=== PATIENT | female | born 1975 | race African-American/Black ===

== ENCOUNTER 2016-11-11 13:38 | Emergency (ER) | payer OTHER ==
[2016-11-11 14:00] VITALS: RESP 20
[2016-11-11] MEDS ORDERED: ONDANSETRON 4 MG/2 ML VIAL IVP STA (14:41)
[2016-11-11] MEDS ORDERED: DICYCLOMINE 10 MG/ML 2 ML AMP IM STA (14:42)
[2016-11-11] MEDS ORDERED: LACTATED RINGERS 2,000 ML IV SCH (14:45)
--- NOTE | 2016-11-11 14:50 | ED ---
Nausea/Vomiting/Diarrhea HPI - General Chief complaint: Nausea/Vomiting/Diarrhea Stated complaint: NVD Time Seen by Provider: 11/11/16 14:27 Source: patient Mode of arrival: ambulatory Limitations: no limitations - History of Present Illness Initial comments: The patient is a 41-year-old female who presents to the ED with a chief complaint of nausea, vomiting, and diarrhea. Patient states that her symptoms began this morning after she had finished eating some fried pork last night. The patient states that her symptoms began at 0415 this morning. Patient states that she does not normally eat pork. Patient states that she's had multiple episodes of vomiting since her symptoms initially began. She notes that she's also had multiple episodes of diarrhea. Patient notes pain in the epigastric region when she feels the urge to vomit. Patient denies any dysuria or hematuria. Patient denies any sick contacts. Patient states that she's been able to tolerate small amounts of water. Otherwise, the patient has not been able to tolerate any food or drink. Patient notes that she also has a history of anemia. She states that she used to receive B12 injections as well as iron supplements but has not been receiving either of these due to the fact that she has been discharged from her primary care practitioner's office due to failing to show up for multiple appointments. Patient notes that she has not been eating healthy recently due to the fact that she lost her job and is currently on food stamps. Patient has a family history of diabetes. - Related Data Previous Rx's Medication Instructions Recorded Dicyclomine [Bentyl] 10 mg PO TID PRN #20 capsule 11/11/16 Famotidine [Pepcid] 20 mg PO BID #7 tablet 11/11/16 Ondansetron Odt [Zofran Odt] 4 mg PO Q8HR PRN #9 tab 11/11/16 Allergies Allergy/AdvReac Type Severity Reaction Status Date / Time acetaminophen [From Tylenol] AdvReac Vomiting Verified 11/11/16 14:46 red dye AdvReac Unknown Verified 11/11/16 14:46 Review of Systems ROS Statement: Those systems with pertinent positive or pertinent negative responses have been documented in the HPI. ROS Other: All systems not noted in ROS Statement are negative. Constitutional: Denies: fever, chills, weakness Eyes: Denies: vision change ENT: Denies: ear pain, throat pain Respiratory: Denies: cough, dyspnea, wheezes, stridor Cardiovascular: Denies: chest pain, palpitations, dyspnea on exertion Endocrine: Reports: fatigue Gastrointestinal: Reports: nausea, vomiting, diarrhea. Denies: abdominal pain, constipation Genitourinary: Denies: urgency, dysuria, frequency, hematuria Musculoskeletal: Denies: back pain Skin: Denies: rash Neurological: Denies: headache, weakness Psychiatric: Denies: anxiety, depression Past Medical History Past Medical History: Asthma Additional Past Medical History / Comment(s): ANEMIA states has mini seizures every day but does not take meds for condition History of Any Multi-Drug Resistant Organisms: None Reported Past Surgical History: Section, Cholecystectomy, Orthopedic Surgery Past Psychological History: No Psychological Hx Reported Smoking Status: Current every day smoker Past Alcohol Use History: None Reported Past Drug Use History: None Reported General Exam Limitations: no limitations General appearance: alert, in no apparent distress Head exam: Present: atraumatic, normocephalic Eye exam: Present: normal appearance, PERRL Pupils: Present: normal accommodation ENT exam: Present: normal exam, mucous membranes dry Neck exam: Present: normal inspection Respiratory exam: Present: normal lung sounds bilaterally. Absent: respiratory distress, wheezes, rales, rhonchi, stridor Cardiovascular Exam: Present: normal rhythm, tachycardia GI/Abdominal exam: Present: soft. Absent: distended, tenderness, guarding, rebound Extremities exam: Present: normal inspection, full ROM Back exam: Present: normal inspection, full ROM Neurological exam: Present: alert, oriented X3 Psychiatric exam: Present: normal affect, normal mood Skin exam: Present: warm, dry, intact Course Vital Signs 11/11/16 13:57 Temperature 99.2 F Pulse Rate 93 Respiratory 20 Rate Blood Pressure 135/90 O2 Sat by Pulse 98 Oximetry Medical Decision Making - Medical Decision Making Patient is a 41-year-old female who presents to ED with a chief complaint of nausea, vomiting, diarrhea. Patient states that her symptoms began earlier this morning. Patient states that they began after she consumed fried pork last night. Patient states abdominal pain, particularly in the epigastric region just before she has the urge to vomit. Patient has no tenderness to palpation on abdominal examination. No distention. Patient notes that she's vomited several times and had several bouts of diarrhea. Denies any recent antibiotic use. Patient denies any sick contacts. Bolus patient with 2L of lactated Ringer's. Check CBC, CMP, Magnesium. Check UA and urine as well. Provide patient with Zofran and Bentyl for symptomatically control. 4:58 PM Patient resting comfortably at this point in time. She states that her nausea and vomiting have resolved. IVF infusing. Will reassess patient after IVF have infused. 6:30 PM Patient has passed a PO challenge. She states that her her abdominal pain and cramping have improved. Patient has provided a urine sample. No evidence of UTI. Urine test noted to be negative. Patient will be discharged at this point in time with prescriptions for Zofran and Bentyl to use at home when necessary. I have counseled the patient regarding on how to use these medications. I have encouraged her to follow-up with her PCP within the next 3- 5 days to ensure that her symptoms are resolved. I have counseled her to return to the ED should her symptoms worsen while at home. I have answered all of her questions to her satisfaction. I have also counseled the patient that her hemoglobin is 11.6 and that she does not require a transfusion today. Nonetheless, she should follow up with her PCP regarding her history of anemia. The patient has requested Pepcid prior to discharge. I am happy to write her a prescription for this medication. - Lab Data Result diagrams: 11/11/16 15:40 11/11/16 15:40 Lab Results 11/11/16 11/11/16 11/11/16 Range/Units 15:40 15:40 17:53 WBC 8.2 (3.8-10.6) k/uL RBC 4.43 (3.80-5.40) m/uL Hgb 11.6 (11.4-16.0) gm/dL Hct 37.3 (34.0-46.0) % MCV 84.1 (80.0-100.0) fL MCH 26.2 (25.0-35.0) pg MCHC 31.1 (31.0-37.0) g/dL RDW 15.1 (11.5-15.5) % Plt Count 370 (150-450) k/uL Neutrophils % 73 % Lymphocytes % 22 % Monocytes % 2 % Eosinophils % 2 % Basophils % 0 % Neutrophils # 6.0 (1.3-7.7) k/uL Lymphocytes # 1.8 (1.0-4.8) k/uL Monocytes # 0.2 (0-1.0) k/uL Eosinophils # 0.1 (0-0.7) k/uL Basophils # 0.0 (0-0.2) k/uL Hypochromasia Slight Sodium 138 (137-145) mmol/L Potassium 4.5 (3.5-5.1) mmol/L Chloride 105 (98-107) mmol/L Carbon Dioxide 24 (22-30) mmol/L Anion Gap 9 mmol/L BUN 12 (7-17) mg/dL Creatinine 0.60 (0.52-1.04) mg/dL Est GFR (MDRD) Af Amer >60 (>60 ml/min/1.73 sqM) Est GFR (MDRD) Non-Af >60 (>60 ml/min/1.73 sqM) Glucose 114 H (74-99) mg/dL Calcium 9.4 (8.4-10.2) mg/dL Magnesium 1.8 (1.6-2.3) mg/dL Total Bilirubin 0.8 (0.2-1.3) mg/dL AST 21 (14-36) U/L ALT 29 (9-52) U/L Alkaline Phosphatase 83 (38-126) U/L Total Protein 7.5 (6.3-8.2) g/dL Albumin 3.9 (3.5-5.0) g/dL Urine Color Urine Appearance (Clear) Urine pH (5.0-8.0) Ur Specific [place] (1.001-1.035) Urine Protein (Negative) Urine Glucose (UA) (Negative) Urine Ketones (Negative) Urine Blood (Negative) Urine Nitrite (Negative) Urine Bilirubin (Negative) Urine Urobilinogen (<2.0) mg/dL Ur Leukocyte Esterase (Negative) Urine RBC (0-5) /hpf Urine WBC (0-5) /hpf Ur Squamous Epith Cells (0-4) /hpf Urine Bacteria (None) /hpf Urine Mucus (None) /hpf Urine HCG, Qual Not Detected (Not Detectd) 11/11/16 Range/Units 17:53 WBC (3.8-10.6) k/uL RBC (3.80-5.40) m/uL Hgb (11.4-16.0) gm/dL Hct (34.0-46.0) % MCV (80.0-100.0) fL MCH (25.0-35.0) pg MCHC (31.0-37.0) g/dL RDW (11.5-15.5) % Plt Count (150-450) k/uL Neutrophils % % Lymphocytes % % Monocytes % % Eosinophils % % Basophils % % Neutrophils # (1.3-7.7) k/uL Lymphocytes # (1.0-4.8) k/uL Monocytes # (0-1.0) k/uL Eosinophils # (0-0.7) k/uL Basophils # (0-0.2) k/uL Hypochromasia Sodium (137-145) mmol/L Potassium (3.5-5.1) mmol/L Chloride (98-107) mmol/L Carbon Dioxide (22-30) mmol/L Anion Gap mmol/L BUN (7-17) mg/dL Creatinine (0.52-1.04) mg/dL Est GFR (MDRD) Af Amer (>60 ml/min/1.73 sqM) Est GFR (MDRD) Non-Af (>60 ml/min/1.73 sqM) Glucose (74-99) mg/dL Calcium (8.4-10.2) mg/dL Magnesium (1.6-2.3) mg/dL Total Bilirubin (0.2-1.3) mg/dL AST (14-36) U/L ALT (9-52) U/L Alkaline Phosphatase (38-126) U/L Total Protein (6.3-8.2) g/dL Albumin (3.5-5.0) g/dL Urine Color Yellow Urine Appearance Clear (Clear) Urine pH 7.0 (5.0-8.0) Ur Specific [place] 1.016 (1.001-1.035) Urine Protein Negative (Negative) Urine Glucose (UA) Negative (Negative) Urine Ketones Negative (Negative) Urine Blood Small H (Negative) Urine Nitrite Negative (Negative) Urine Bilirubin Negative (Negative) Urine Urobilinogen <2.0 (<2.0) mg/dL Ur Leukocyte Esterase Negative (Negative) Urine RBC <1 (0-5) /hpf Urine WBC 1 (0-5) /hpf Ur Squamous Epith Cells 1 (0-4) /hpf Urine Bacteria Rare H (None) /hpf Urine Mucus Rare H (None) /hpf Urine HCG, Qual (Not Detectd) Disposition Clinical Impression: Nausea & vomiting, Diarrhea Disposition: HOME SELF-CARE Condition: Good Instructions: Acute Nausea and Vomiting (ED), Acute Diarrhea (ED) Additional Instructions: Please return to the ED should you have worsening symptoms while at home, particularly if associated with fever, chills or worsening abdominal pain. Prescriptions: Dicyclomine [Bentyl] 10 mg PO TID PRN #20 capsule PRN Reason: pain Famotidine [Pepcid] 20 mg PO BID #7 tablet Ondansetron Odt [Zofran Odt] 4 mg PO Q8HR PRN #9 tab PRN Reason: Nausea Referrals: Lencho Dillard MD [STAFF PHYSICIAN] - 11/18/16 (Dr. Dillard is a Primary Care Physician. You can call their office to schedule a follow-up appointment within the next 3-5 days to ensure that your symptoms resolve.) Time of Disposition: 18:33
[2016-11-11] MEDS ORDERED: METOCLOPRAMIDE 5 MG/ML 2 ML VIAL IVP STA (15:36)
[2016-11-11] MEDS ORDERED: diphenhydrAMINE 50 MG/ML 1 ML VIAL IVP STA (15:36)
[2016-11-11 16:10] LABS: Basophils % (A) 0 %; CH 26.1; CHCM 31.1; Eosinophils # (A) 0.1 k/uL (0-0.7); Eosinophils % (A) 2 %; HCT 37.3 % (34.0-46.0); HDW 2.78; HGB 11.6 gm/dL (11.4-16.0); Hypochromasia Slight; Luc # (Auto) 0.08; Luc % (Auto) 1; Lymphocytes # (A) 1.8 k/uL (1.0-4.8); Lymphocytes % (A) 22 %; MCH 26.2 pg (25.0-35.0); MCHC 31.1 g/dL (31.0-37.0); MCV 84.1 fL (80.0-100.0); Mean Platelet Volume 7.3; Monocytes # (A) 0.2 k/uL (0-1.0); Monocytes % (A) 2 %; Neutrophils % (A) 73 %; RBC 4.43 m/uL (3.80-5.40); RDW 15.1 % (11.5-15.5); WBC 8.2 k/uL (3.8-10.6); WBC (Perox) 8.93
[2016-11-11 16:18] LABS: ALT 29 U/L (9-52); AST 21 U/L (14-36); Alkaline Phosphatase 83 U/L (38-126); Anion Gap 9 mmol/L; Blood Urea Nitrogen 12 mg/dL (7-17); Calcium 9.4 mg/dL (8.4-10.2); Carbon Dioxide 24 mmol/L (22-30); Chloride 105 mmol/L (98-107); Glucose 114 mg/dL (74-99); Magnesium 1.8 mg/dL (1.6-2.3); Non-African American GFR(MDRD) >60 (>60 ml/min/1.73 sqM); Potassium 4.5 mmol/L (3.5-5.1); Sodium 138 mmol/L (137-145); Total Bilirubin 0.8 mg/dL (0.2-1.3); Total Protein 7.5 g/dL (6.3-8.2)
[2016-11-11 18:10] LABS: Appearance,Urine Clear (Clear); Bacteria,Urine Rare /hpf; Bilirubin,Urine Negative (Negative); Glucose,Urine (UA) Negative (Negative); Ketones,Urine Negative (Negative); Leukocyte Esterase,Urine Negative (Negative); Mucus,Urine Rare /hpf; Nitrite,Urine Negative (Negative); Particle Count 2151; Protein,Urine Negative (Negative); RBC,Urine <1 /hpf (0-5); Specific Gravity,Urine 1.016 (1.001-1.035); Squamous Epithelial Cell,Urine 1 /hpf (0-4); UA Billing (MACRO vs. MICRO) MICRO; Urobilinogen,Urine <2.0 mg/dL (<2.0); WBC,Urine 1 /hpf (0-5)
[2016-11-11 18:47] VITALS: BP 134/87; PULSE 90; TEMP 98.4
== END 2016-11-11 18:47 | disposition home or self-care (01) ==
LOC: EC 13:38
DX: R11.2 Nausea with vomiting, unspecified (principal); R19.7 Diarrhea, unspecified; R10.13 Epigastric pain; F17.200 Nicotine dependence, unspecified, uncomplicated; Z88.6 Allergy status to analgesic agent; Z91.048 Other nonmedicinal substance allergy status; Z90.49 Acquired absence of other specified parts of digestive tract
CPT/HCPCS: 36415; 80053; 83735; 85025; 81001; 81025; 99283; 96374; 96361 ×2; 96372; J0500; J2405

== ENCOUNTER 2021-12-08 15:46 | Emergency (ER) | payer OTHER ==
[2021-12-08 16:45] VITALS: RESP 18; TEMP 98.5
--- NOTE | 2021-12-08 17:15 | XR ---
EXAMINATION TYPE: XR KUB DATE OF EXAM: 12/08/2021 COMPARISON: NONE HISTORY: Abdominal pain TECHNIQUE: 2 views upright FINDINGS: There is no sign of intestinal obstruction or pneumoperitoneum. Fecal pattern is normal. No evidence of a mass. There are no calcifications over the kidneys. Lung bases appear clear. IMPRESSION: Nonacute abdomen.
[2021-12-08] MEDS ORDERED: SODIUM CHLORIDE 0.9% 1,000 ML IV STA (18:13)
[2021-12-08] MEDS ORDERED: polyethylene glycoL 3350 17 GM POWD.PACK PO STA (18:13)
--- NOTE | 2021-12-08 18:15 | ED ---
General Adult HPI - General Chief complaint: Abdominal Pain Stated complaint: Constipation Time Seen by Provider: 12/08/21 18:04 Source: patient Mode of arrival: ambulatory Limitations: no limitations - History of Present Illness Initial comments: Dictation was produced using [email or web address] dictation software. please excuse any grammatical, word or spelling errors. Chief Complaint: 46-year-old female presents emergency department for constipation History of Present Illness: Patient is a 38-year-old female presents to the emergency department for constipation. Patient reports that she has been passing hard and small pebble size stools for the last 2-3 days. Patient states she consumes marijuana on a regular basis. She describes her symptoms as feeling dehydrated internally. Denies any nausea. No abdominal pain. Patient has bouts of constipation in the past. She does have a history of anemia. Patient denies any nausea or lightheadedness. The ROS documented in this emergency department record has been reviewed and confirmed by me. Those systems with pertinent positive or negative responses have been documented in the HPI. All other systems are other negative and/or noncontributory. PHYSICAL EXAM: General Impression: Alert and oriented x3, not in acute distress HEENT: Normocephalic atraumatic, extra-ocular movements intact, pupils equal and reactive to light bilaterally, mucous membranes moist. Cardiovascular: Heart regular rate and rhythm Chest: Able to complete full sentences, no retractions, no tachypnea Abdomen: abdomen soft, non-tender, non-distended, no organomegaly Musculoskeletal: Pulses present and equal in all extremities, no peripheral edema Motor: no focal deficits noted Neurological: CN II-XII grossly intact, no focal motor or sensory deficits noted Skin: Intact with no visualized rashes Psych: Normal affect and mood ED course: 38-year-old female presents to the emergency department for clinical constipation. Abdominal x-ray was ordered by triage nurse per [facility] protocol. X- rays unremarkable. Patient's well-appearing she has soft abdomen. No high-risk features. Vital signs are within acceptable limits. Patient given IV fluids and dose of MiraLAX. Patient discharged and advised to follow-up with primary care doctor. - Related Data Previous Rx's Medication Instructions Recorded Ciprofloxacin HCl [Cipro] 500 mg PO Q12HR #10 tablet 05/15/17 Allergies Allergy/AdvReac Type Severity Reaction Status Date / Time acetaminophen [From Tylenol] AdvReac Vomiting Verified 12/08/21 16:45 red dye AdvReac Unknown Verified 12/08/21 16:45 Review of Systems ROS Statement: Those systems with pertinent positive or pertinent negative responses have been documented in the HPI. ROS Other: All systems not noted in ROS Statement are negative. Past Medical History Past Medical History: Asthma, Hyperlipidemia, Hypertension Additional Past Medical History / Comment(s): ANEMIA states has mini seizures every day but does not take meds for condition History of Any Multi-Drug Resistant Organisms: None Reported Past Surgical History: Section, Cholecystectomy, Orthopedic Surgery Past Psychological History: No Psychological Hx Reported Smoking Status: Never smoker Past Alcohol Use History: None Reported Past Drug Use History: Marijuana General Exam Limitations: no limitations Course Vital Signs 12/08/21 16:40 Temperature 98.5 F Pulse Rate 79 Respiratory 18 Rate Blood Pressure 176/87 O2 Sat by Pulse 97 Oximetry Disposition Clinical Impression: Dehydration, Constipation Disposition: HOME SELF-CARE Condition: Good Instructions (If sedation given, give patient instructions): Dehydration (ED) Is patient prescribed a controlled substance at d/c from ED?: No Referrals: Nonstaff,Physician [Primary Care Provider] - 1-2 days
[2021-12-08 20:06] VITALS: BP 150/74; PULSE 70
== END 2021-12-08 20:05 | disposition home or self-care (01) ==
LOC: EC 15:46
DX: K59.00 Constipation, unspecified (principal); E86.0 Dehydration; I10 Essential (primary) hypertension; E78.5 Hyperlipidemia, unspecified; J45.909 Unspecified asthma, uncomplicated; F12.90 Cannabis use, unspecified, uncomplicated; Z88.6 Allergy status to analgesic agent; Z90.49 Acquired absence of other specified parts of digestive tract
CPT/HCPCS: 74018; 96360; 99283

== ENCOUNTER 2021-12-21 23:20 | Emergency (ER) | payer OTHER ==
[2021-12-22 00:49] VITALS: BP 101/45; PULSE 80; RESP 19; TEMP 98
--- NOTE | 2021-12-22 02:59 | ED ---
Recheck HPI - General Chief Complaint: Recheck/Abnormal Lab/Rx Stated Complaint: Dehydration Time Seen by Provider: 12/22/21 01:50 Source: patient, RN notes reviewed Mode of arrival: wheelchair - History of Present Illness Initial Comments: This is a pleasant 46-year-old female who presents to the parents department admittedly just looking for a place to sleep. Apparently she and her partner have been evicted from their residence. They currently have no place to stay. They admit to sleeping in the waiting room of the emergency department for the last 2 days. Patient does state that she has chronic peripheral edema but has no fever or chills. No chest pain or shortness of breath. No headache, no fever or chills, no changes in vision or hearing, no sore throat or difficulty with speech, no neck pain, no chest pain or shortness of breath, no abdominal pain, no nausea or vomiting, no changes in urination or bowel movements, no numbness or tingling, no extremity pain, no skin rashes or lesions. - Related Data Previous Rx's Medication Instructions Recorded Ciprofloxacin HCl [Cipro] 500 mg PO Q12HR #10 tablet 05/15/17 Allergies Allergy/AdvReac Type Severity Reaction Status Date / Time acetaminophen [From Tylenol] AdvReac Vomiting Verified 12/22/21 00:50 red dye AdvReac Unknown Verified 12/22/21 00:50 Review of Systems ROS Statement: Those systems with pertinent positive or pertinent negative responses have been documented in the HPI. ROS Other: All systems not noted in ROS Statement are negative. Past Medical History Past Medical History: Asthma, Hyperlipidemia, Hypertension Additional Past Medical History / Comment(s): ANEMIA states has mini seizures every day but does not take meds for condition History of Any Multi-Drug Resistant Organisms: None Reported Past Surgical History: Section, Cholecystectomy, Orthopedic Surgery Past Psychological History: No Psychological Hx Reported Smoking Status: Never smoker Past Alcohol Use History: None Reported Past Drug Use History: Marijuana General Exam General appearance: alert, in no apparent distress Head exam: Present: atraumatic, normocephalic, normal inspection Eye exam: Present: normal appearance, PERRL, EOMI. Absent: scleral icterus, conjunctival injection, periorbital swelling ENT exam: Present: normal exam, mucous membranes moist Neck exam: Present: normal inspection. Absent: tenderness, meningismus, lymphadenopathy Respiratory exam: Present: normal lung sounds bilaterally. Absent: respiratory distress, wheezes, rales, rhonchi, stridor Cardiovascular Exam: Present: regular rate, normal rhythm, normal heart sounds. Absent: systolic murmur, diastolic murmur, rubs, gallop, clicks GI/Abdominal exam: Present: soft, normal bowel sounds. Absent: distended, tenderness, guarding, rebound, rigid Extremities exam: Present: normal inspection, full ROM, normal capillary refill. Absent: tenderness, pedal edema, joint swelling, calf tenderness Back exam: Present: normal inspection Neurological exam: Present: alert, oriented X3, CN II-XII intact Psychiatric exam: Present: normal affect, normal mood Skin exam: Present: warm, dry, intact, normal color. Absent: rash Course Vital Signs 12/22/21 00:42 Temperature 98 F Pulse Rate 80 Respiratory 19 Rate Blood Pressure 101/45 O2 Sat by Pulse 98 Oximetry Medical Decision Making - Medical Decision Making Homeless patient presents admittedly for a place to stay and fdc for the night. No acute findings. Patient was told to return to the ER for any signs or symptoms worsen. Told to return immediately if any other problems arise. All questions answered. Treatment plan discussed. Patient in agreement Every effort has been made to ensure accuracy of this dictation. However, due to the limitations of electronic medical records and dictation devices, errors in charting still occur. Lab Associate, Dr. George Disposition Clinical Impression: Homelessness, Obesity, Chronic edema Disposition: HOME SELF-CARE Condition: Good Instructions (If sedation given, give patient instructions): Leg Edema (ED) Additional Instructions: No headache, no fever or chills, no changes in vision or hearing, no sore throat or difficulty with speech, no neck pain, no chest pain or shortness of breath, no abdominal pain, no nausea or vomiting, no changes in urination or bowel movements, no numbness or tingling, no extremity pain, no skin rashes or lesions. Provide options for homeless fdc Is patient prescribed a controlled substance at d/c from ED?: No Referrals: Nonstaff,Physician [Primary Care Provider] - 1-2 days Time of Disposition: 02:57
== END 2021-12-22 04:55 | disposition home or self-care (01) ==
LOC: EC 23:20
DX: E66.9 Obesity, unspecified (principal); R60.0 Localized edema; I10 Essential (primary) hypertension; J45.909 Unspecified asthma, uncomplicated; Z59.00 Homelessness unspecified; Z88.6 Allergy status to analgesic agent; Z88.8 Allergy status to other drugs, medicaments and biological substances; Z68.44 Body mass index [BMI] 60.0-69.9, adult
CPT/HCPCS: 99283

== ENCOUNTER 2024-07-21 14:44 | Emergency (ER) | payer OTHER ==
[2024-07-21 15:09] VITALS: RESP 20
--- NOTE | 2024-07-21 15:41 | XR ---
EXAMINATION TYPE: XR pelvis AP view DATE OF EXAM: 07/21/2024 3:34 PM COMPARISON: None. CLINICAL INDICATION: Female, 48 years old with history of Possible tampon stuck, TECHNIQUE: A single AP view of the pelvis is obtained. FINDINGS: There is no acute fracture/dislocation evident in the pelvis. The hip and sacroiliac join ts appear symmetric and unremarkable. Scattered tiny bilateral pelvic phleboliths. No definitive rect angular shaped air density to suggest retained tampon but this should be correlated with direct visua lization. IMPRESSION: As above. [facility], , 07/21/2024 3:39 PM
--- NOTE | 2024-07-21 15:49 | XR ---
Chest, 2 view. HISTORY: Difficulty breathing COMPARISON: 09/15/2022 TECHNIQUE: PA and lateral views the chest are obtained. FINDINGS: The lungs are clear and there is no consolidative or interstitial opacity. There is no pleural effusion or pneumothorax. The heart, pulmonary vasculature, mediastinum and melo appear normal. The osseous structures are intact. IMPRESSION: No significant abnormality seen. No acute cardiopulmonary disease. [facility], , 07/21/2024 3:47 PM
--- NOTE | 2024-07-21 16:46 | ED ---
Female Urogenital HPI - General Source: patient, RN notes reviewed Mode of arrival: ambulatory Limitations: no limitations - History of Present Illness MD Complaint: vaginal discharge Onset/Timin -: month(s) Quality: burning Associated Symptoms: vaginal discharge <Yong Lewis - Last Filed: 07/21/24 16:43> <Gela Vallejo - Last Filed: 08/03/24 10:59> - General Chief complaint: Urogenital Stated complaint: Questionable tampon stuck, asthma Time Seen by Provider: 07/21/24 14:59 - History of Present Illness Initial comments: This is a 48-year-old female presenting with possible stuck tampon x 1 month. Patient endorses recent vaginal burning and discharge of tissue. Patient also mentions asthma exacerbation with wet cough x 1 month, requesting chest x-ray an d steroid shot. Endorses use of albuterol inhaler with minimal relief. (Yong Lewis) 48-year-old who presents emergency department requesting evaluation for possible tampon. Patient frequently had normal vaginal burning and discharge. Patient was on her menstrual cycle approximately 1 month ago and states she cant account for 1 tampon. Patient denies being sexually active. She is also admitting to a cough. Does admit to history of asthma. Denies fevers or chills. No sick contacts. She has been using her albuterol inhaler with minimal relief in her symptoms. She is requesting a steroid shot as these have helped her in the past. (Gela Vallejo) - Related Data Previous Rx's Medication Instructions Recorded Ciprofloxacin HCl [Cipro] 500 mg PO Q12HR #10 tablet 05/15/17 Albuterol Inhaler [Ventolin Hfa 2 puff INHALATION QID #8 gm 09/15/22 Inhaler] predniSONE 50 mg PO DAILY #5 tab 09/15/22 Fluconazole [Diflucan] 150 mg PO ONCE #2 tab 07/21/24 Allergies Allergy/AdvReac Type Severity Reaction Status Date / Time acetaminophen [From Tylenol] AdvReac Vomiting Verified 07/21/24 15:04 red dye AdvReac Unknown Verified 07/21/24 15:04 Review of Systems ROS Other: All systems not noted in ROS Statement are negative. <Yong Lewis - Last Filed: 07/21/24 16:43> ROS Other: All systems not noted in ROS Statement are negative. <Gela Vallejo - Last Filed: 08/03/24 10:59> ROS Statement: Those systems with pertinent positive or pertinent negative responses have been documented in the HPI. Past Medical History Past Medical History: Asthma, Hyperlipidemia, Hypertension Additional Past Medical History / Comment(s): ANEMIA states has mini seizures e very day but does not take meds for condition History of Any Multi-Drug Resistant Organisms: None Reported Past Surgical History: Section, Cholecystectomy, Orthopedic Surgery Past Psychological History: No Psychological Hx Reported Smoking Status: Never smoker Past Alcohol Use History: None Reported Past Drug Use History: Marijuana <Yong Lewis - Last Filed: 07/21/24 16:43> General Exam Limitations: no limitations <Yong Lewis - Last Filed: 07/21/24 16:43> General appearance: alert, in no apparent distress Head exam: Present: atraumatic, normocephalic, normal inspection Eye exam: Present: normal appearance, PERRL, EOMI. Absent: scleral icterus, conjunctival injection, periorbital swelling ENT exam: Present: normal exam, mucous membranes moist Neck exam: Present: normal inspection. Absent: tenderness, meningismus, lymphadenopathy Respiratory exam: Present: normal lung sounds bilaterally. Absent: respiratory distress, wheezes, rales, rhonchi, stridor Cardiovascular Exam: Present: regular rate, normal rhythm, normal heart sounds. Absent: systolic murmur, diastolic murmur, rubs, gallop, clicks GI/Abdominal exam: Present: soft, normal bowel sounds. Absent: distended, tenderness, guarding, rebound, rigid External exam: Present: normal external exam Speculum exam: Present: normal speculum exam. Absent: foreign body Extremities exam: Present: normal inspection, full ROM, normal capillary refill. Absent: tenderness, pedal edema, joint swelling, calf tenderness Back exam: Present: normal inspection Neurological exam: Present: alert, oriented X3, CN II-XII intact Psychiatric exam: Present: normal affect, normal mood Skin exam: Present: warm, dry, intact, normal color. Absent: rash <Gela Vallejo - Last Filed: 08/03/24 10:59> - General Exam Comments Initial Comments: Visual Physical Exam Vital signs reviewed General: Well-appearing, nontoxic, no acute distress. Head: Normocephalic, atraumatic Eyes: PERRLA, EOMI ENT: Airway patent Chest: Nonlabored breathing Skin: No visual rash, normal skin tone Neuro: Alert and oriented 3 Musculoskeletal: No gross abnormalities (Yong Lewis) Course Vital Signs 07/21/24 07/21/24 15:05 18:29 Temperature 98.2 F 98.0 F Pulse Rate 88 80 Respiratory 20 20 Rate Blood Pressure 128/73 130/68 O2 Sat by Pulse 97 99 Oximetry Medical Decision Making <Yong Lewis - Last Filed: 07/21/24 16:43> <Gela Vallejo - Last Filed: 08/03/24 10:59> - Medical Decision Making I completed the quick note portion of this chart signed HUY Cool (Yong Lewis) Was pt. sent in by a medical professional or institution (ANIYA Swann, BIOANALYST, urgent care, hospital, or correction...) When possible be specific @ -No Did you speak to anyone other than the patient for history (EMS, parent, family, police, friend...)? What history was obtained from this source @ -No Did you review nursing and triage notes (agree or disagree)? Why? @ -I reviewed and agree with nursing and triage notes Were old charts reviewed (outside hosp., previous admission, EMS record, old EKG, old radiological studies, urgent care reports/EKG's, correction records)? Report findings @ -No old charts were reviewed Differential Diagnosis (chest pain, altered mental status, abdominal pain women, abdominal pain men, vaginal bleeding, weakness, fever, dyspnea, syncope, headache, dizziness, GI bleed, back pain, seizure, CVA, palpatations, mental health, musculoskeletal)? @ -retained foreign body, sti, bv, yeast infection, asthma exacerbation EKG interpreted by me (3pts min.). @ -not done X-rays interpreted by me (1pt min.). @ -yes, no acute findings CT interpreted by me (1pt min.). @ -None done U/S interpreted by me (1pt. min.). @ -None done What testing was considered but not performed or refused? (CT, X-rays, U/S, labs)? Why? @ -None What meds were considered but not given or refused? Why? @ -None Did you discuss the management of the patient with other professionals (professionals i.e. , PA, BIOANALYST, lab, RT, psych nurse, forensic social worker, camp director, teacher, chief digital media officer, telephonic case manager)? Give summary @ -No Was smoking cessation discussed for >3mins.? @ -No Was critical care preformed (if so, how long)? @ -No Were there social determinants of health that impacted care today? How? (Homelessness, low income, unemployed, alcoholism, drug addiction, transportation, low edu. Level, literacy, decrease access to med. care, [place] [facility], rehab)? @ -No Was there de-escalation of care discussed even if they declined (Discuss DNR or withdrawal of care, Hospice)? DNR status @ -No What co-morbidities impacted this encounter? (DM, HTN, Smoking, COPD, CAD, Cancer, CVA, ARF, Chemo, Hep., AIDS, mental health diagnosis, sleep apnea, morbid obesity)? @ -asthma Was patient admitted / discharged? Hospital course, mention meds given and route, prescriptions, significant lab abnormalities, going to OR and other pertinent info. @ -XR negative. Pelvic exam demonstrates no retained foreign body. solumedrol shot given. Patient will be discharged to follow up with pcp in 2-4 days. She is given a prescription for Diflucan for suspected yeast Undiagnosed new problem with uncertain prognosis? @ -No Drug Therapy requiring intensive monitoring for toxicity (Heparin, Nitro, Insulin, Cardizem)? @ -No Were any procedures done? @ -No Diagnosis/symptom? @ -acute pelvic discharge -suspected Kallie infection, eval for foreign body, acute cough Acute, or Chronic, or Acute on Chronic? @ -acute Uncomplicated (without systemic symptoms) or Complicated (systemic symptoms)? @ -complicated Side effects of treatment? @ -No Exacerbation, Progression, or Severe Exacerbation? @ -No Poses a threat to life or bodily function? How? (Chest pain, [place], [place], pneumonia, PE, COPD, DKA, ARF, appy, cholecystitis, CVA, Diverticulitis, Homicidal, Suicidal, threat to sNo n... and all critical care pts) @ -No (Gela Vallejo) - Lab Data Lab Results 07/21/24 07/21/24 Range/Units 17:08 17:08 Urine Color Yellow Urine Appearance Clear (Clear) Urine pH 5.5 (5.0-8.0) Ur Specific [place] 1.027 (1.001-1.035) Urine Protein Trace H (Negative) Urine Glucose (UA) Negative (Negative) Urine Ketones Negative (Negative) Urine Blood Negative (Negative) Urine Nitrite Negative (Negative) Urine Bilirubin Negative (Negative) Urine Urobilinogen <2.0 (<2.0) mg/dL Ur Leukocyte Esterase Negative (Negative) Urine HCG, Qual Not Detected (Not Detectd) Disposition <Yong Lewis - Last Filed: 07/21/24 16:43> Is patient prescribed a controlled substance at d/c from ED?: No Time of Disposition: 18:11 <Gela Vallejo - Last Filed: 08/03/24 10:59> Clinical Impression: Vaginal discharge, Cough, Asthma Disposition: HOME SELF-CARE Condition: Stable Instructions (If sedation given, give patient instructions): Yeast Infection (ED) Additional Instructions: Please take the medications as they are directed. Follow up with your doctor in 1-2 days and return for any new or worsening symptoms Prescriptions: Fluconazole [Diflucan] 150 mg PO ONCE #2 tab Referrals: Remington Macedo MD [Primary Care Provider] - 1-2 days
[2024-07-21 17:23] LABS: Appearance,Urine Clear (Clear); Bilirubin,Urine Negative (Negative); Blood,Urine Negative (Negative); Color,Urine Yellow; Glucose,Urine (UA) Negative (Negative); Ketones,Urine Negative (Negative); Leukocyte Esterase,Urine Negative (Negative); Nitrite,Urine Negative (Negative); PH, Urine 5.5 (5.0-8.0); Protein,Urine Trace (Negative); Specific Gravity,Urine 1.027 (1.001-1.035); Urobilinogen,Urine <2.0 mg/dL (<2.0)
[2024-07-21] MEDS: methylPREDNISolone SOD SUCCI 125 MG/2 ML VIAL IM STA (18:08)
[2024-07-21 18:30] VITALS: BP 130/68; PULSE 80; TEMP 98
== END 2024-07-21 20:39 | disposition home or self-care (01) ==
LOC: EC 14:44
DX: J45.909 Unspecified asthma, uncomplicated (principal); N89.8 Other specified noninflammatory disorders of vagina; Z91.041 Radiographic dye allergy status; Z88.5 Allergy status to narcotic agent
CPT/HCPCS: 81003; 81025; 72170; 71046; 99283; 96372; J2919